=== PATIENT | male | born 1960 | race Caucasian/White ===

== ENCOUNTER 2023-12-05 08:32 | Emergency (ER) | payer OTHER, SELFPAY ==
[2023-12-05 08:38] VITALS: BP 147/85; PULSE 66; RESP 18; TEMP 36.4; O2SAT 97; BMI 30.4
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
--- NOTE | 2023-12-05 09:30 | CRLHL7_ITS ---
For Patients: As a result of the Century Cures Act, medical imaging exams and procedure reports are released immediately into your electronic medical record. You may view this report before your referring provider. If you have questions, please contact your health care provider. INDICATION: New heart murmur. TECHNIQUE: Chest 1 AP supine view. COMPARISON: None. FINDINGS: No pneumothorax or pleural effusion. Lungs are clear. Cardiac and mediastinal contours are within normal limits. No pulmonary edema. Upper abdomen and osseous structures as imaged show no acute abnormality. IMPRESSION: No evidence of acute cardiopulmonary disease. Dictated by Carlos A Lujan MD @ 12/05/2023 10:21:37 AM (Electronically Signed)
[2023-12-05 09:48] LABS: Appearance Urine Clear (Clear); Bilirubin Urine Negative (Negative); Blood Urine 1+ (Negative); Color Urine Yellow (Yellow); Glucose Urine Negative (Negative); Ketones Urine Negative (Negative); Leukocyte Esterase Urine Negative (Negative); Nitrite Urine Negative (Negative); Protein Urine Negative (Negative); Urobilinogen Urine 0.2 (0.2-1.0); pH Urine 6.5 (5.0-8.5)
[2023-12-05 10:13] LABS: WBC Urine 0-2 (0-5)
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
[2023-12-05] MEDS: 0.9 % SODIUM CHLORIDE 1000 ml 1,000 ML IV (11:00)
[2023-12-05 11:03] LABS: Creatinine, Point-of-Care* 1.2 mg/dl (0.6-1.3)
[2023-12-05] MEDS: ACETAMINOPHEN 500 MG TABLET 1000 MG PO (11:37)
== END 2023-12-05 12:49 | disposition home or self-care (01) ==
PROVIDERS: Emergency Provider Family Medicine
DX: S46.912A Strain of unspecified muscle, fascia and tendon at shoulder and upper arm level, left arm, initial encounter (principal); H93.13 Tinnitus, bilateral; R31.29 Other microscopic hematuria; V43.52XA Car driver injured in collision with other type car in traffic accident, initial encounter
CPT/HCPCS: 70450; 71045; 72125; 72170; 73030; 74177; 81001; 82565; 99284; A9270; J7030; Q9967